=== PATIENT | female | born 2000 | race Caucasian/White ===

== ENCOUNTER 2023-11-12 21:13 | Emergency (ER) | payer MEDICAID, SELFPAY ==
[2023-11-12 21:20] VITALS: BP 156/100; PULSE 108; O2SAT 98
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
[2023-11-12 21:29] VITALS: BP 132/95; PULSE 89; RESP 18; TEMP 36.6; O2SAT 97; BMI 25.7
[2023-11-12] MEDS: Silver Sulfadiazine 1 % Cream 20 GM TUBE 1 APPL TOPICAL (22:28)
[2023-11-12] MEDS: oxyCODONE HCl Immed Release 5 MG TABLET 10 MG PO (22:28)
[2023-11-12 22:49] VITALS: BP 128/92; PULSE 94; RESP 16; TEMP 36.8; O2SAT 97
[2023-11-12 23:15] VITALS: BP 128/92; PULSE 94; RESP 16; TEMP 36.8; O2SAT 97
== END 2023-11-12 23:20 | disposition home or self-care (01) ==
PROVIDERS: Emergency Provider Internal Medicine
DX: T24.202A Burn of second degree of unspecified site of left lower limb, except ankle and foot, initial encounter (principal); T23.202A Burn of second degree of left hand, unspecified site, initial encounter; T23.211A Burn of second degree of right thumb (nail), initial encounter; T31.0 Burns involving less than 10% of body surface; X10.2XXA Contact with fats and cooking oils, initial encounter; Y93.9 Activity, unspecified; Y92.9 Unspecified place or not applicable; Y99.9 Unspecified external cause status
CPT/HCPCS: 99283

== ENCOUNTER 2023-12-12 08:04 | Outpatient (RCR) | payer MEDICAID, SELFPAY | END 2024-01-15 15:57 | disposition home or self-care (01) | LOC: HO.WCC 08:04 | PROVIDERS: Visit Provider Surgery | DX: T25.222D Burn of second degree of left foot, subsequent encounter (principal) | CPT/HCPCS: 99212 ==

== ENCOUNTER 2023-12-24 14:43 | Outpatient (REF) | payer MEDICAID, SELFPAY | END 2023-12-24 14:44 | disposition home or self-care (01) | LOC: HO.CHCLNP 14:43 | PROVIDERS: Visit Provider Family Medicine | DX: Z12.4 Encounter for screening for malignant neoplasm of cervix (principal) | CPT/HCPCS: 88142 ==

== ENCOUNTER 2024-04-10 17:25 | Emergency (ER) | payer MEDICAID, SELFPAY ==
--- NOTE | 2024-04-10 | ECG_ITS ---
Test Reason : chest pain Blood Pressure : / mmHG Vent. Rate : 090 BPM Atrial Rate : 090 BPM P-R Int : 158 ms QRS Dur : 072 ms QT Int : 326 ms P-R-T Axes : 050 036 012 degrees QTc Int : 398 ms Normal sinus rhythm with sinus arrhythmia Normal ECG No previous ECGs available Referred By: Generic ED Physician Electronically Signed By:MIRTHA DURAN
--- NOTE | ~2024-04-10 | XR_ITS ---
EXAMINATION: XR CHEST CLINICAL INFORMATION: Central chest pain. COMPARISON: None available. TECHNIQUE: 2 views of the chest were obtained. FINDINGS: The heart is normal in size. There is no consolidation within either lung. No pleural effusion. No pneumothorax. No acute osseous abnormality. XR/XR chest 2V IMPRESSION: No acute cardiopulmonary disease. Electronically signed by: Vinay Higginbotham DO 04/10/2024 07:45 PM EDT RP
[2024-04-10 17:38] VITALS: BP 127/79; PULSE 91; RESP 20; TEMP 36.1; O2SAT 94; BMI 24.1
--- NOTE | 2024-04-10 17:39 | ED.CHESTPAIN ---
HPI - Chest Pain General Chief Complaint: Chest Pain Stated Complaint: chest pain Related Data Previous Rx's ?Medication ?Instructions ?Recorded ibuprofen 600 mg tablet 600 mg PO Q6H PRN fever or pain 11/12/23 #30 tabs silver sulfadiazine 1 % topical 1 appl topical DAILY #85 grams 11/12/23 cream (SSD) Allergies Allergy/AdvReac Type Severity Reaction Status Date / Time sherrie Allergy Anaphylaxis Verified 04/10/24 17:41 [facility] Social History Social History Advance Directives: No Advance Directives Information Provided: No Do you have a plan to hurt others: No Plan Physical Exam Vital Signs: Vital Signs: Last Vital Signs Temp 96.8 F 04/10/24 20:53 Pulse 87 04/10/24 20:53 Resp 20 04/10/24 20:53 BP 120/70 04/10/24 20:53 Pulse Ox 100 04/10/24 20:53 O2 Del Method Room Air 04/10/24 20:53 BMI result Body Mass Index 24.1 Course Course Course Narrative: This is a Rapid Medical Examination (RME) performed by Juwan Avery PA-C in triage. Full HPI, ROS, assessment and treatment plan per primary provider in the Main ED. 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 pain worse w/ deep breathing. reports it feels like someone is sitting on her chest. reports hx of similar with anxiety attack 3 yrs ago. 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 no OCP. no calf pain. + well appearing. Plan: labs, ekg, cxr Reevaluation(s) Reevaluation #1: Patient left the emergency department before myself or any of the other clinicians could review or explain physical exam findings, test results, need or lack there of for additional testing, treatment options, or a treatment plan. Medical Decision Making Lab Data 04/10/24 18:08 04/10/24 18:08 Labs: Lab Results 04/10/24 Range/Units 18:08 WBC 7.9 (4.8-10.8) X10*3/uL RBC 4.51 (4.20-5.50) X10*6/uL Hgb 13.9 (12.0-16.0) g/dl Hct 39.5 (37.0-47.0) % MCV 87.6 (80.0-98.0) fL MCH 30.8 (27.0-33.0) pg MCHC 35.2 H (31.0-35.0) g/dl RDW 11.8 (11.0-16.0) % Plt Count 300 (160-400) X10*3/uL MPV 9.0 L (9.4-12.3) fL Immature Gran % (Auto) 0.3 (0.0-0.4) % Neut % (Auto) 60.1 (45-73) % Lymph % (Auto) 30.8 (20-40) % [place] % (Auto) 5.3 (2-11) % Eos % (Auto) 2.9 (0-4) % Baso % (Auto) 0.6 (0-2) % Lymph # (Auto) 2.4 (1.2-4.9) X10*3/uL [place] # (Auto) 0.4 (0.1-1.2) X10*3/uL Eos # (Auto) 0.2 (0.0-0.4) X10*3/uL Baso # (Auto) 0.1 (0.0-0.2) X10*3/uL Abs Immat Gran (auto) 0.02 (0.00-0.03) X10*3/uL Absolute Neuts (auto) 4.7 (2.0-8.3) x10*3/uL Absolute Nucleated RBC 0.000 (0.0-0.012) X10*3/uL Nucleated RBC % (auto) 0.0 (0.0-0.2) /100WBC PT 12.5 (11.1-13.3) SEC INR 1.0 (0.9-1.1) Sodium 141 (135-145) mmol/L Potassium 4.0 (3.3-5.1) mmol/L Chloride 110 H (96-108) mmol/L Carbon Dioxide 24 (22-29) mmol/L Anion Gap 11 L (12-20) BUN 13 (9-16) mg/dL Creatinine 0.88 (0.5-1.4) mg/dL Estim Creat Clear Calc 88.7 Estimated GFR > 60 Random Glucose 131 H (60-115) mg/dL Calcium 9.4 (8.4-10.2) mg/dL Magnesium 2.4 (1.6-2.6) mg/dL Total Bilirubin 0.5 (0.0-1.0) mg/dL AST 18 (5-31) U/L ALT 22 (0-31) U/L Alkaline Phosphatase 75 (39-117) U/L Troponin I High Sens < 2.7 (<3.5-17.0) ng/L Total Protein 7.2 (6.5-8.0) g/dL Albumin 4.3 (3.5-5.0) g/dL Lipase 25 (8-78) U/L Discharge Plan Discharge Clinical Impression: Chest pain Patient Disposition: Left W/O Completing Treatment Prescriptions: No Action silver sulfadiazine [SSD] 1 % cream 1 appl topical DAILY Qty: 85 1RF Rx Instructions: apply a 1.5 mm thickness ibuprofen 600 mg tablet 600 mg PO Q6H PRN (Reason: fever or pain) Qty: 30 0RF Discharge Date/Time: 04/10/24 20:56
[2024-04-10 18:22] LABS: MANUAL DIFF FLAG NO
[2024-04-10 18:24] LABS: Basophils Absolute Auto 0.1 X10*3/uL (0.0-0.2); Basophils Percent Auto 0.6 % (0-2); Eosinophils Absolute Auto 0.2 X10*3/uL (0.0-0.4); Eosinophils Percent Auto 2.9 % (0-4); Hematocrit 39.5 % (37.0-47.0); Hemoglobin 13.9 g/dl (12.0-16.0); Imm Gran Abs Auto 0.02 X10*3/uL (0.00-0.03); Imm Gran Pct Auto 0.3 % (0.0-0.4); Lymphocytes Absolute Auto 2.4 X10*3/uL (1.2-4.9); Lymphocytes Percent Auto 30.8 % (20-40); Mean Corpuscular HGB Conc 35.2 g/dl (31.0-35.0); Mean Corpuscular Hemoglobin 30.8 pg (27.0-33.0); Mean Corpuscular Volume 87.6 fL (80.0-98.0); Monocytes Absolute Auto 0.4 X10*3/uL (0.1-1.2); Monocytes Percent Auto 5.3 % (2-11); Neutrophils Absolute Auto 4.7 x10*3/uL (2.0-8.3); Neutrophils Percent Auto 60.1 % (45-73); Platelet Count 300 X10*3/uL (160-400); Red Blood Count 4.51 X10*6/uL (4.20-5.50); Red Cell Distribution Width 11.8 % (11.0-16.0); White Blood Count 7.9 X10*3/uL (4.8-10.8)
[2024-04-10 18:29] LABS: Prothrombin Time 12.5 SEC (11.1-13.3)
[2024-04-10 18:40] LABS: Alanine Aminotransferase 22 U/L (0-31); Albumin Level 4.3 g/dL (3.5-5.0); Alkaline Phosphatase 75 U/L (39-117); Anion Gap 11 (12-20); Aspartate Amino Transferase 18 U/L (5-31); Bilirubin Total 0.5 mg/dL (0.0-1.0); Blood Urea Nitrogen 13 mg/dL (9-16); Calcium 9.4 mg/dL (8.4-10.2); Carbon Dioxide 24 mmol/L (22-29); Chloride 110 mmol/L (96-108); Creatinine Clr Calc Pharmacy 88.7; Estimated Glomerular Filt Rate > 60; Glucose Random 131 mg/dL (60-115); Lipase 25 U/L (8-78); Magnesium 2.4 mg/dL (1.6-2.6); Sodium 141 mmol/L (135-145); Total Protein 7.2 g/dL (6.5-8.0)
[2024-04-10 18:49] LABS: Troponin-I High Sensitivity < 2.7 ng/L (<3.5-17.0)
[2024-04-10 20:53] VITALS: BP 120/70; PULSE 87; RESP 20; TEMP 36; O2SAT 100
== END 2024-04-10 20:56 | disposition left against medical advice (07) ==
LOC: HO.ED 20:56
PROVIDERS: Physician Assistant Medical; Emergency Provider Emergency Medicine
DX: R07.9 Chest pain, unspecified (principal); F41.9 Anxiety disorder, unspecified; Z79.899 Other long term (current) drug therapy; Z53.21 Procedure and treatment not carried out due to patient leaving prior to being seen by health care provider
CPT/HCPCS: 36415; 71046; 80053; 83690; 83735; 84484; 85025; 85610; 93005; 99281; 99283

== ENCOUNTER 2024-06-13 16:59 | Emergency (ER) | payer OTHER, MEDICAID, SELFPAY ==
--- NOTE | ~2024-06-13 | XR_ITS ---
EXAMINATION: XR HAND/WRIST, RIGHT CLINICAL INFORMATION: Right hand pain. COMPARISON: None available. TECHNIQUE: PA, lateral, and oblique views of the right hand and wrist. FINDINGS: The bones and soft tissues appear unremarkable. No fracture identified. Alignment is anatomic. Joint spaces appear maintained. No erosions or soft tissue calcifications. XR/XR hand wrist RT IMPRESSION: Normal radiographs of the hand and wrist. Electronically signed by: Eloy Holt MD 06/13/2024 05:59 PM [facility]
--- NOTE | ~2024-06-13 | XR_ITS ---
EXAMINATION: XR ELBOW, RIGHT CLINICAL INFORMATION: Pain. COMPARISON: None available. TECHNIQUE: AP, lateral, and oblique views of the right elbow. FINDINGS: The bones and soft tissues appear unremarkable. No fracture or joint effusion identified. Alignment is anatomic. Joint spaces are maintained. XR/XR elbow RT min 3V IMPRESSION: Normal plain film examination of the right elbow. Electronically signed by: Eloy Holt MD 06/13/2024 05:57 PM EST
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
[2024-06-13 17:08] VITALS: BP 136/90; PULSE 106; RESP 16; TEMP 37.1; O2SAT 99; BMI 28.6
[2024-06-13 18:54] VITALS: BP 136/90; PULSE 106; RESP 16; TEMP 37.1; O2SAT 99
== END 2024-06-13 18:54 | disposition home or self-care (01) ==
LOC: HO.ED 18:49
PROVIDERS: Emergency Provider Internal Medicine
DX: S63.501A Unspecified sprain of right wrist, initial encounter (principal); W20.8XXA Other cause of strike by thrown, projected or falling object, initial encounter; Y93.89 Activity, other specified; Y92.218 Other school as the place of occurrence of the external cause; Y99.0 Civilian activity done for income or pay
CPT/HCPCS: 73080; 73110; 73130; 99282; 99283

== ENCOUNTER 2024-06-16 11:16 | Outpatient (REF) | payer OTHER, MEDICAID, SELFPAY ==
[2024-06-17 04:11] LABS: HBS Num1 7.22 mIU/mL (0-7.99); HBc Num1 0.11 S/CO (0.00-0.79); HBsAGNum1 0.44 S/CO (0.00-0.99); Hepatitis B Core Antibody Nonreactive (Nonreactive); Hepatitis B Surface Antigen Negative (Negative); ~Hepatitis B Surface Antibody NONREACTIVE (Nonreactive)
[2024-06-17 05:36] LABS: CT PCR NOT DETECTED (Not Detect.); NG PCR NOT DETECTED (Not Detect.)
== END 2024-06-16 11:17 | disposition home or self-care (01) ==
LOC: HO.HHCL 11:16
PROVIDERS: Visit Provider Advanced Practice Midwife
DX: Z20.2 Contact with and (suspected) exposure to infections with a predominantly sexual mode of transmission (principal)
CPT/HCPCS: 36415; 86704; 86706; 87340; 87491; 87591

== ENCOUNTER 2024-07-03 07:54 | Outpatient (REF) | payer OTHER, MEDICAID, SELFPAY | END 2024-07-03 07:55 | disposition home or self-care (01) | LOC: HO.HOSX 07:54 | DX: M79.643 Pain in unspecified hand (principal); M25.531 Pain in right wrist | CPT/HCPCS: 73110; 99202 ==

== ENCOUNTER 2024-07-03 08:47 | Outpatient (AMB) | payer OTHER, MEDICAID, SELFPAY ==
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
[2024-07-03 08:58] VITALS: BMI 25.7
== END 2024-07-03 09:34 | disposition home or self-care (01) ==
DX: M79.643 Pain in unspecified hand (principal)
CPT/HCPCS: 99203

== ENCOUNTER 2024-07-16 21:41 | Emergency (ER) | payer MEDICAID, SELFPAY ==
[2024-07-16 21:46] VITALS: BP 119/81; PULSE 80; RESP 18; TEMP 36.9; O2SAT 98; BMI 28.2
--- NOTE | 2024-07-16 22:10 | MHC.EDTECH ---
Patient brought into triage area,labs,and sars/flu/rsv obtained and sent to lab.
[2024-07-16 22:17] LABS: Basophils Percent Auto 0.5 % (0-2); Eosinophils Absolute Auto 0.1 X10*3/uL (0.0-0.4); Eosinophils Percent Auto 1.5 % (0-4); Hematocrit 38.4 % (37.0-47.0); Hemoglobin 13.8 g/dl (12.0-16.0); Imm Gran Abs Auto 0.01 X10*3/uL (0.00-0.03); Imm Gran Pct Auto 0.1 % (0.0-0.4); Lymphocytes Absolute Auto 2.3 X10*3/uL (1.2-4.9); Lymphocytes Percent Auto 29.2 % (20-40); MANUAL DIFF FLAG NO; Mean Corpuscular HGB Conc 35.9 g/dl (31.0-35.0); Mean Corpuscular Hemoglobin 30.8 pg (27.0-33.0); Mean Corpuscular Volume 85.7 fL (80.0-98.0); Monocytes Absolute Auto 0.5 X10*3/uL (0.1-1.2); Monocytes Percent Auto 5.8 % (2-11); Neutrophils Percent Auto 62.9 % (45-73); Platelet Count 281 X10*3/uL (160-400); Red Blood Count 4.48 X10*6/uL (4.20-5.50); Red Cell Distribution Width 11.3 % (11.0-16.0)
[2024-07-16] MEDS: diphenhydrAMINE HCL 50 MG/ML VIAL 25 MG IVPUSH (22:38)
[2024-07-16] MEDS: 0.9 % Sodium Chloride 1,000 ML 999 ML IV (22:38)
[2024-07-16] MEDS: Ketorolac Tromethamine 15 MG/ML VIAL IVPUSH (22:39)
[2024-07-16] MEDS: Metoclopramide HCl 10 MG/2 ML VIAL IVPUSH (22:39)
[2024-07-16 22:40] LABS: Alanine Aminotransferase 25 U/L (0-31); Albumin Level 4.2 g/dL (3.5-5.0); Alkaline Phosphatase 67 U/L (39-117); Anion Gap 11 (12-20); Aspartate Amino Transferase 19 U/L (5-31); Bilirubin Total 0.6 mg/dL (0.0-1.0); Blood Urea Nitrogen 8 mg/dL (9-16); Calcium 8.8 mg/dL (8.4-10.2); Carbon Dioxide 22 mmol/L (22-29); Chloride 112 mmol/L (96-108); Creatinine Clr Calc Pharmacy 84.8; Estimated Glomerular Filt Rate > 60; Glucose Random 106 mg/dL (60-115); HCG Quantitative < 2 mIU/mL; Potassium 3.3 mmol/L (3.3-5.1); Sodium 142 mmol/L (135-145); Total Protein 7.2 g/dL (6.5-8.0)
--- NOTE | 2024-07-16 22:47 | ED.HA ---
HPI - Headache General Chief Complaint: Headache Stated Complaint: Headache for 3 days Time Seen by Provider: 07/16/24 22:04 Source: patient and old records reviewed Mode of arrival: ambulatory Limitations: no limitations History of Present Illness ED Provider: OMAR RICK Narrative: 24 yo female with PMH of migraines on topamax - reports worsening R sided throbbing headache x 3 days with n/v photophobia. No recent illness or trauma, no thinners. She tried motrin earlier no relief. She took additional 50mg of topamax on accident over her normal dose today. She was worried. She states it started at rest - has not had any fevers. She notes the headache will not go away. MD elicited complaint: migraine Pertinent past history: migraines Onset (ago): day(s) (3) Onset description: gradually Location: right, frontal and temporal Severity: severe Quality & Timing: throbbing and progressively worsening Exacerbating factors: light and noise Relieving factors: rest Context: occurred at rest Associated symptoms: nausea, vomiting and photophobia Treatments prior to arrival: none Related Data Previous Rx's ?Medication ?Instructions ?Recorded ibuprofen 600 mg tablet 600 mg PO Q6H PRN pain #30 tabs 06/13/24 cyclobenzaprine 10 mg tablet 10 mg PO TID PRN muscle spasm #20 07/17/24 tabs ondansetron 4 mg disintegrating 4 mg PO Q8H PRN nausea and 07/17/24 tablet vomiting #20 tabs Allergies Allergy/AdvReac Type Severity Reaction Status Date / Time kiwi Allergy Anaphylaxis Verified 07/16/24 21:50 sumatriptan Allergy Anaphylaxis Verified 07/16/24 21:50 Review of Systems Review of Systems: Constitutional : No Fever, No Chills, No Fatigue ENT/Mouth : No sore throat, No Rhinorrhea Eyes: No Eye Pain, No Swelling, No Redness Cardiovascular : No Chest Pain, No SOB, No Dyspnea on Exertion Respiratory : No Cough, No Sputum Gastrointestinal : pos Nausea, pos Vomiting, No Diarrhea, No abdominal Pain Genitourinary : No Dysuria, No Urinary Frequency, No Hematuria, Musculoskeletal : No joint pain, No Myalgias, No Joint Swelling Skin : No Skin Lesions, No rash Neuro : No Weakness, No Numbness, No Dizziness, positive Headache Psych : No Anxiety/Panic, No Depression All other systems reviewed and are negative PMFSH Past Medical History Attestation statement: The following information was validated with the patient. 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 Oriented X3. No acute distress. Eyes: Pupils equal, round and reactive to light. photophobia ENT: Pharynx normal. photophobia Neck: Normal inspection. Neck supple. no meningeal signs CVS: Normal heart rate and rhythm. Pulses normal. Respiratory: No respiratory distress. Breath sounds normal. Abdomen: Soft and nontender. Skin: Skin warm and dry. Normal skin color. Normal skin turgor. Extremities: No lower extremity edema. No calf ttp Neuro: Oriented X 3. No motor deficit. No sensory deficit. Medications Administered Discontinued Medications Generic Name Dose Route Start Last Admin Trade Name Freq PRN Reason Stop Dose Admin Diphenhydramine HCl 25 mg 07/16/24 22:24 07/16/24 22:38 Diphenhydramine Hcl 50 Mg/Ml Vial IVPUSH 07/16/24 22:25 25 mg ONCE ONE Administration Sodium Chloride 1,000 mls @ 999 mls/hr 07/16/24 22:24 07/16/24 22:38 Ns IV 07/16/24 23:24 999 mls/hr .Q1H1M ONE Administration Ketorolac Tromethamine 15 mg 07/16/24 22:24 07/16/24 22:39 Ketorolac Tromethamine 15 Mg/Ml Vial IVPUSH 07/16/24 22:25 15 mg ONCE ONE Administration Metoclopramide HCl 10 mg 07/16/24 22:24 07/16/24 22:39 Metoclopramide Hcl 10 Mg/2 Ml Vial IVPUSH 07/16/24 22:25 10 mg ONCE ONE Administration Medical Decision Making Medical Decision Making [facility] Narrative: 24 yo female with PMH of migraines on topamax here with progressive headache with photophobia n/v not on thinners and no trauma - overall not toxic appearing but does appear uncomfortable no fevers. Given worsening headache and gradual onset doubt SAH, no fevers to suggest infection. She did take extra 50mg of topamax doubt overdose or ingestion. Started on IV migraine cocktail. Differential Diagnosis Differential Diagnoses: The differential diagnosis associated with the presentation includes migraine, viral syndrome, tension headache Admission/Observation Consideration of admission/observation: Escalation of care including admission/observation considered feels better stable for DC tolerating PO Lab Data [facility] Lab Attestation statement: I reviewed the patient's lab results. 07/16/24 22:10 07/16/24 22:10 Labs: Lab Results 07/16/24 Range/Units 22:10 WBC 8.0 (4.8-10.8) X10*3/uL RBC 4.48 (4.20-5.50) X10*6/uL Hgb 13.8 (12.0-16.0) g/dl Hct 38.4 (37.0-47.0) % MCV 85.7 (80.0-98.0) fL MCH 30.8 (27.0-33.0) pg MCHC 35.9 H (31.0-35.0) g/dl RDW 11.3 (11.0-16.0) % Plt Count 281 (160-400) X10*3/uL MPV 9.0 L (9.4-12.3) fL Immature Gran % (Auto) 0.1 (0.0-0.4) % Neut % (Auto) 62.9 (45-73) % Lymph % (Auto) 29.2 (20-40) % Schuyler % (Auto) 5.8 (2-11) % Eos % (Auto) 1.5 (0-4) % Baso % (Auto) 0.5 (0-2) % Lymph # (Auto) 2.3 (1.2-4.9) X10*3/uL Schuyler # (Auto) 0.5 (0.1-1.2) X10*3/uL Eos # (Auto) 0.1 (0.0-0.4) X10*3/uL Baso # (Auto) 0.0 (0.0-0.2) X10*3/uL Abs Immat Gran (auto) 0.01 (0.00-0.03) X10*3/uL Absolute Neuts (auto) 5.0 (2.0-8.3) x10*3/uL Absolute Nucleated RBC 0.000 (0.0-0.012) X10*3/uL Nucleated RBC % (auto) 0.0 (0.0-0.2) /100WBC Sodium 142 (135-145) mmol/L Potassium 3.3 (3.3-5.1) mmol/L Chloride 112 H (96-108) mmol/L Carbon Dioxide 22 (22-29) mmol/L Anion Gap 11 L (12-20) BUN 8 L (9-16) mg/dL Creatinine 1.01 (0.5-1.4) mg/dL Estim Creat Clear Calc 84.8 Estimated GFR > 60 Random Glucose 106 (60-115) mg/dL Calcium 8.8 D (8.4-10.2) mg/dL Total Bilirubin 0.6 (0.0-1.0) mg/dL AST 19 (5-31) U/L ALT 25 (0-31) U/L Alkaline Phosphatase 67 (39-117) U/L Total Protein 7.2 (6.5-8.0) g/dL Albumin 4.2 (3.5-5.0) g/dL Beta HCG, Quant < 2 mIU/mL Influenza Type A (PCR) NEGATIVE (Negative) Influenza Type B (PCR) NEGATIVE (Negative) RSV RNA Qual (PCR) NEGATIVE (Negative) SARS-CoV-2 RNA (RT-PCR) NEGATIVE (Negative) Independent Historian Clinical information obtained from an independent historian. History obtained from or confirmed by: Friend Tests considered The following testing was considered but not selected: CT head but hx of migraines gradual onset at rest and worsening over 3 days doubt ICH Prescription Management I considered prescription management with: Other Discharge Plan Discharge Clinical Impression: Migraine Qualifiers: Migraine type: unspecified Status migrainosus presence: without status migrainosus Intractability: not intractable Qualified Code(s): G43.909 - Migraine, unspecified, not intractable, without status migrainosus Patient Disposition: Home, Self-Care Instructions: Migraine Headache (ED) Additional Instructions: labs reassuring negative for flu, covid, rsv stay hydrated do not take the topiramate until tomorrow night return for any worsening symptoms or concerns. Prescriptions: New cyclobenzaprine 10 mg tablet 10 mg PO TID PRN (Reason: muscle spasm) Qty: 20 0RF ondansetron 4 mg tablet,disintegrating 4 mg PO Q8H PRN (Reason: nausea and vomiting) Qty: 20 0RF No Action ibuprofen 600 mg tablet 600 mg PO Q6H PRN (Reason: pain) Qty: 30 0RF Print Language: Hungarian
[2024-07-16 22:55] LABS: Influenza A PCR NEGATIVE (Negative); Influenza B PCR NEGATIVE (Negative); Resp Syncy Virus RNA Qual PCR NEGATIVE (Negative); SARS COV2 PCR INHOUSE NEGATIVE (Negative)
[2024-07-17 00:13] VITALS: BP 107/75; PULSE 74; RESP 18; TEMP 36.8; O2SAT 100
== END 2024-07-17 00:30 | disposition home or self-care (01) ==
PROVIDERS: Emergency Provider Emergency Medicine
DX: G43.909 Migraine, unspecified, not intractable, without status migrainosus (principal); Z03.818 Encounter for observation for suspected exposure to other biological agents ruled out; Z79.899 Other long term (current) drug therapy
CPT/HCPCS: 0241U; 36415; 80053; 84702; 85025; 96374; 96375; 99284; J1200; J1885; J2765

== ENCOUNTER 2024-07-17 07:59 | Outpatient (REF) | payer MEDICAID, SELFPAY | END 2024-07-17 08:00 | disposition home or self-care (01) | LOC: HO.HOSX 07:59 | DX: M79.641 Pain in right hand (principal); M79.643 Pain in unspecified hand | CPT/HCPCS: 73110; 99212 ==

== ENCOUNTER 2024-07-17 09:38 | Outpatient (AMB) | payer OTHER, MEDICAID, SELFPAY ==
--- NOTE | 2024-07-17 09:39 | A.OFFVIS_ITS ---
Vital Signs 07/17/24 09:40 Height 5 ft 4 in Weight 164 lb BMI 28.1 Intake Visit Reasons: OV right wrist sprain-WC DOI 06/05/24 Intake Note: Elisa is a 24 year old right hand dominant female who presents today for a follow up visit for a work related injury to her right wrist, DOI: 06/05/2024. At last visit patient was provided with a Velcro thumb spica splint only to be removed with bathing and to be worn at all other times. Patient reports that she continues to have pain at the base of the thumb and in the ring and pointer fingers of the right hand. She reports painful ROM , worse in the thumb which she also notes a crunching noise and sensation with this motion. Of note she was seen last night at [facility] [place] and concern of overdose of migraine medication (topamax). Allergies kiwi Allergy (Verified 07/16/24 21:50) Anaphylaxis sumatriptan Allergy (Verified 07/16/24 21:50) Anaphylaxis HPI HPI OV right wrist sprain-WC DOI 06/05/24: Details: Elisa is a 24 year old right hand dominant female who presents today for a follow up visit for a work related injury to her right wrist, DOI: 06/05/2024. At last visit patient was provided with a Velcro thumb spica splint only to be removed with bathing and to be worn at all other times. Patient reports that she continues to have pain at the base of the thumb and in the ring and pointer fingers of the right hand. She reports painful ROM , worse in the thumb which she also notes a crunching noise and sensation with this motion. 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 Neuro: Normal sensation of the tips of all digits of the right hand at this time Vascular: Cap refill brisk Pain: Patient reports significant tenderness to palpation diffusely throughout the right wrist, however this is worst over the scaphoid tubercle, in the anatomical snuffbox, and on the volar and central wrist Patient does report discomfort in the knuckles of the right hand with attempting to make a closed fist ROM: With encouragement, patient is able to make a closed fist and extend all digits of the right hand Skin: No lacerations or abrasions. General: No ecchymosis, erythema, or evidence of infection. Psych: Appears grossly normal Affect normal Attitude cooperative Results Reviewed Results Reviewed: X-rays obtained in the office today and independently reviewed by me, Wally Raza PA-C, demonstrate no fracture or acute bony abnormality of the right hand or wrist. Assessment & Plan Assessment & Plan (1) Tenderness of anatomical snuffbox: Code(s): M79.643 - Pain in unspecified hand Category: Medical Plan 1. Anatomical snuffbox and thenar eminence tenderness of right wrist Secondary to injury Date of injury 06/05/2024 At this time, patient is educated about what tenderness in this area could mean Due to the fact that the patient still has no radio evident x-rays but is still experiencing significant snuffbox tenderness and tenderness to the scaphoid tubercle, urgent MRI is ordered to assess if there is an occult fracture of the scaphoid of the right wrist Patient was provided with a Velcro thumb spica splint only to be removed with bathing, and to be worn at all other times Patient was educated that she should be continuing to abide by strict 1-2 lb weight restriction in the right hand, but states that her job has not been able to accommodate this well, and states she may need to go on FMLA Patient was amenable to this plan Patient will follow-up after MRI for results review and discussion of further treatment options if indicated, sooner with any acute concerns Orders: Orders XR wrist RT w scaphoid Today M79.641 - Pain in right hand MR wrist RT wo con Today M79.643 - Pain in unspecified hand Medications: Refilled ibuprofen 600 mg PO Q6H PRN 30 tabs 0RF pain Coding Level of Care Code Est Pt Level 3 (49748) Diagnoses Tenderness of anatomical snuffbox M79.643
[2024-07-17 09:40] VITALS: BMI 28.1
== END 2024-07-17 10:07 | disposition home or self-care (01) ==
DX: M79.643 Pain in unspecified hand (principal)
CPT/HCPCS: 99213

== ENCOUNTER 2024-07-27 19:12 | Outpatient (REF) | payer OTHER, MEDICAID, SELFPAY ==
--- NOTE | ~2024-07-27 | MR_ITS ---
CLINICAL HISTORY: M79.643 - Pain in unspecified hand MR right wrist without gadolinium Comparison: DX - XR WRIST RT W SCAPHOID - 07/17/24 09:40 EST Findings: No fracture, dislocation, or significant osteoarthritis. No significant joint effusion. The scapholunate and lunotriquetral ligaments are intact. The flexor and extensor tendons are intact. Mild soft tissue edema signal adjacent to the ulnar styloid process extending into the styloid insertion of the triangular fibrocartilage complex. The articular disc and volar and dorsal radioulnar ligaments are intact. The extensor carpi ulnaris tendon subsheath is intact. The median nerve is unremarkable in course, caliber, and signal intensity. No masses are present within Guyon's canal. IMPRESSION: Mild soft tissue edema adjacent to the ulnar styloid process and styloid insertion of the triangular fibrocartilage complex which may represent a mild contusion/sprain. The triangular fibrocartilage complex is otherwise intact. No evidence of fracture. This document has been electronically signed by: Omero Garcia DO on 07/28/2024 16:26:31
== END 2024-07-27 19:13 | disposition home or self-care (01) ==
LOC: HO.MRI 19:12
DX: M79.641 Pain in right hand (principal)
CPT/HCPCS: 73221

== ENCOUNTER → 2024-07-27 19:25 | Outpatient (BNV) | payer OTHER, MEDICAID, SELFPAY | PROVIDERS: Visit Provider Radiology Diagnostic Radiology | DX: S60.211A Contusion of right wrist, initial encounter (principal) | CPT/HCPCS: 73221 ==

== ENCOUNTER 2024-08-12 09:56 | Outpatient (AMB) | payer OTHER, MEDICAID, SELFPAY ==
--- NOTE | 2024-08-12 09:57 | MHC.OFFVIS ---
Intake Visit Reasons: OV - RT wrist MRI review, 06/05/24 Intake Note: Elisa is a 24 year old right hand dominant female who presents today for an MRI review of her right wrist s/p work related injury to her right wrist, DOI: 06/05/2024. MRI was done on 07/28/2024. Pt states she still has some pain especially when moving her arm certain ways she will get a stabbing pain in her palm up to her thumb and down her arm. Allergies kiwi Allergy (Verified 08/12/24 10:01) Anaphylaxis sumatriptan Allergy (Verified 08/12/24 10:01) Anaphylaxis HPI HPI OV - RT wrist MRI review, 06/05/24: Details: Patient is a 24-year-old female who presents for right wrist MRI review after a work injury, date of injury 06/05/2024. Patient reports that she does still experience pain in the right hand and wrist, but states that this has improved since previous evaluation. Patient inquires about potential work restrictions. Reports some occasional numbness and tingling in the right thumb. No other acute complaints or concerns at this time. 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 Neuro: Normal sensation of the tips of all digits of the right hand at this time Vascular: Cap refill brisk Pain: Patient reports improved tenderness to palpation diffusely throughout the right wrist, however this is worst over the scaphoid tubercle, in the anatomical snuffbox, and on the volar and central wrist Patient does report discomfort in the knuckles of the right hand with attempting to make a closed fist ROM: Patient is able to make a closed fist and extend all digits of the right hand Skin: No lacerations or abrasions. General: No ecchymosis, erythema, or evidence of infection. Psych: Appears grossly normal Affect normal Attitude cooperative Results Reviewed Results Reviewed: IMPRESSION: Mild soft tissue edema adjacent to the ulnar styloid process and styloid insertion of the triangular fibrocartilage complex which may represent a mild contusion/sprain. The triangular fibrocartilage complex is otherwise intact. No evidence of fracture. This document has been electronically signed by: Omero Garcia, DO Assessment & Plan Assessment & Plan (1) Contusion of right hand: Code(s): S60.221A - Contusion of right hand, initial encounter Category: Medical (2) Tenderness of anatomical snuffbox: Code(s): M79.643 - Pain in unspecified hand Category: Medical Plan 1. Bony contusion of right wrist with snuffbox tenderness Date of injury 06/05/2024 Patient is educated that her MRI did not show any fracture or acute bony abnormality of the right scaphoid or any other bone of the right wrist Patient is also educated that I did not see anything on wet read of the MRI Patient is educated that she likely has a bony contusion of her right scaphoid, and there is no acute surgical intervention indicated for this injury Patient was amenable to this plan Patient was referred to occupational therapy for range of motion and strengthening of the right hand in the setting of a bony contusion of the right wrist Patient is also educated she should continue wearing her Velcro thumb spica splint with daytime activities and for pain, but should remove it for range of motion while at rest and while relaxing Patient will follow-up in 5-6 weeks for reassessment, sooner with any acute concerns Orders: Orders OT Evaluation and Treatment Today M79.643 - Pain in unspecified hand, S60.221A - Contusion of right hand, initial encounter Coding Level of Care Code Est Pt Level 3 (25347) Diagnoses Contusion of right hand S60.221A Tenderness of anatomical snuffbox M79.643
== END 2024-08-12 10:33 | disposition home or self-care (01) ==
DX: S60.221A Contusion of right hand, initial encounter (principal); M79.643 Pain in unspecified hand
CPT/HCPCS: 99213

== ENCOUNTER → 2024-08-12 09:56 | Outpatient (BNVA) | payer OTHER, MEDICAID, SELFPAY | DX: S60.221A Contusion of right hand, initial encounter (principal) | CPT/HCPCS: 99212 ==

== ENCOUNTER 2024-09-09 13:06 | Outpatient (RCR) | payer OTHER, SELFPAY ==
--- NOTE | 2024-08-18 11:16 | MHC.OT.EP ---
[address] [phone] Occupational Therapy Plan of Care Patient Name: Elisa Ingram Date of Evaluation: 08/18/24 Diagnosis: SCAPHOID CONTUSION Pain Location: THENAR EMINENCE R THUMB CENTRAL VOLAR PALM AND DORSAL HAND R ULNAR SYLOID, ULNAR WRIST Pain Score: 4-9/10 Pain Scale Used: Numeric (0 - 10) Aggravating Factors: DAILY ACTIVITIES (PULLING, PUSHING) Alleviating Factors: IBUPROFEN, GUMMIES, INCONSISTENT HEAT/ICE Assessment: MS INGRAM EXPERIENCED A WORK RELATED INJURY 10 WEEKS AGO TO HER DOMINANT R HAND. MRI RESULTS SHOW MILD SOFT TISSUE EDEMA ADJACENT TO THE ULNAR STYLOID PROCESS AND TFCC. SHE IS CURRENTLY WEARING A PRE BROCK THUMB SPICA ORTHOSIS WITH ADLs/IADLs. HER PAIN IS REPORTED IN HER THENAR EMINENCE, CENTRAL VOLAR AND DORSAL HAND, AND ULNAR ASPECT OF HER WRIST. ONGOING SKILLED OT IS WARRANTED TO IMPROVE ROM, STRENGTH, COORDINATION, PAIN MANAGEMENT AND IMPROVE FUNCTION FOR ADLs/IADLs. A 75% LIMITATION IS REPORTED PER THE QUICK DASH ASSESSMENT. Frequency and Duration: The patient will be seen 3X/WEEK FOR 6 WEEKS Short Term Goals: IND HEP IND USE OF HEAT/ICE IND ADL CLOSURE BOARD R WRIST ROM >60/55 Mcc Goals: WEAN FROM ORTHOSIS QUICK DASH <40% R GROSS GRASP >40 POUNDS REPORT <3/10 PAIN WITH LIFTING >10 POUNDS FOR IADLs Treatment Plan: Therapeutic Exercise Therapeutic Activity Home Exercise Program Splinting Neuro Re-ed Patient Education Desensitization/Sensory Re-ed Edema Control ADL Training Ultrasound NMES Iontophoresis Paraffin Fluidotherapy MHP Cold Packs Joint Mobilization Soft Tissue Mobilization Kinesiotaping Other (see comments) Electronically Signed By: FE SANTIAGO OTR/L Please Sign and return to therapist. Thank you once again for your referral.
--- NOTE | 2024-09-09 13:51 | MHC.OT.DC ---
[address] [phone] F: [phone] Occupational Therapy Discharge Note Patient Name: Elisa Ingram Provider: Wally Raza Diagnosis: SCAPHOID CONTUSION Date of Evaluation: 08/18/24 Date of Discharge: 09/09/24 Treatments to Date: 9 Cancellations to Date: 0 No Shows to Date: 0 Discharge Status: Achieved Goals Improved Function Independent with HEP Discharge Summary: MS INGRAM HAS BEEN MOTIVATED AND PROGRESSED WELL WITH HER OT TREATMENT SESSIONS. SHE HAS MET HER GOALS, INCLUDING LIFTING TASKS. SHE REPORTS LOW PAIN IN HER THENAR EMINENCE REGION (09/07). Pt READY FOR A TRANSITION TO A HOME BASED PROGRAM. D/C OT SERVICES. Electronically Signed By: FE SANTIAGO OTR/L Reviewed/agree with student documentation: N/A Therapist: Please Sign and return to therapist, thank you for your referral.
== END 2024-09-09 13:50 | disposition home or self-care (01) ==
LOC: HO.OT 13:06
PROVIDERS: PCP Internal Medicine
DX: S60.221D Contusion of right hand, subsequent encounter (principal); M79.641 Pain in right hand
CPT/HCPCS: 97033; 97110; 97140; 97167

== ENCOUNTER 2024-09-18 14:14 | Outpatient (AMB) | payer OTHER, SELFPAY ==
--- NOTE | 2024-09-18 14:23 | MHC.OFFVIS ---
Intake Visit Reasons: OV-Right Wrist Injury 07/26/24 -ROM check Intake Note: Elisa is a 24 year old right hand dominant female who presents today for follow up of a work related injury to her right wrist, DOI: 06/05/2024. At her last visit she was referred to OT. Patient reports that she has made good progress working with occupational therapy. ROM has improved, she still has some very mild pain in the palm of the hand but explains that this is tolerable. Denies numbness and tingling. No concerns at this time Allergies kiwi Allergy (Verified 08/12/24 10:01) Anaphylaxis sumatriptan Allergy (Verified 08/12/24 10:01) Anaphylaxis HPI HPI OV-Right Wrist Injury 07/26/24 -ROM check: Details: Elisa is a 24 year old right hand dominant female who presents today for follow up of a work related injury to her right wrist, DOI: 06/05/2024. At her last visit she was referred to OT. Patient reports that she has made good progress working with occupational therapy. ROM has improved, she still has some very mild pain in the palm of the hand but explains that this is tolerable. Denies numbness and tingling. 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 Neuro: Normal sensation of the tips of all digits of the right hand at this time Vascular: Cap refill brisk Pain: Patient reports no tenderness to palpation throughout the right wrist Patient reports no discomfort with range of motion of the right hand ROM: Patient is able to make a closed fist and extend all digits of the right hand Skin: No lacerations or abrasions. General: No ecchymosis, erythema, or evidence of infection. Psych: Appears grossly normal Affect normal Attitude cooperative Assessment & Plan Assessment & Plan (1) Contusion of right hand: Code(s): S60.221A - Contusion of right hand, initial encounter Category: Medical (2) Tenderness of anatomical snuffbox: Code(s): M79.643 - Pain in unspecified hand Category: Medical Plan 1. Bony contusion of right wrist with snuffbox tenderness Date of injury 06/05/2024 Patient is educated that her MRI did not show any fracture or acute bony abnormality of the right scaphoid or any other bone of the right wrist Patient is also educated that I did not see anything on wet read of the MRI Patient was educated that due to her complete improvement in symptoms, there is no further treatment indicated at this time Patient is educated that she can return to work full duty with no active restrictions Patient will follow-up as needed with any acute concerns Coding Level of Care Code Est Pt Level 3 (27483) Diagnoses Contusion of right hand S60.221A Tenderness of anatomical snuffbox M79.643
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
--- OUTSIDE RECORDS SUMMARY | 2024-09-18 14:36 | XMS_ITS | Encounter Summary ---
Author Organization [employer] Address [address] [facility] 7 [place] [address] Care Team Providers Care Industrial Pharmacist Name Role Phone Jennie Quinones MD Primary Care Provider [phone]- [phone] Reason for Visit * Reason Onset Date Comments Med Refill 12/18/2023 Encounter Details Date Type Department Care Team ([facility] st Contact Info) Description 12/18/2023 Refill [facility] MED & PEDS [address] [place] [address] Jennie Quinones MD [address] [place] [address] Migraine syndrome Social History Tobacco Use Types Packs/Day Years Used Date Smoking Tobacco: Never Passive Smoke Exposure: Never Smokeless Tobacco: Never Depression Answer Date Recorded Patient Health Questionnaire-9 [...] Orientation Straight 05/25/2022 3: 50 PM EDT documented as of this encounter Plan of Treatment Not on file documented as of this encounter Visit Diagnoses Diagnosis Migraine syndrome Migraine with aura, without mention of intractable migraine without mention of status migrainosus documented in this encounter Additional Health Concerns Assessment Noted Time PHQ-9 Depression Total Score: 16 024 10:56 AM EDT documented as of this encounter Care Teams Industrial Pharmacist Relationship Specialty Start Date End Date Jennie Quinones MD [address] [place] [id number] PCP - General Internal Medicine 12/17/23 documented as of this encounter
== END 2024-09-18 14:32 | disposition home or self-care (01) ==
PROVIDERS: PCP Internal Medicine
DX: S60.221A Contusion of right hand, initial encounter (principal); Z04.2 Encounter for examination and observation following work accident
CPT/HCPCS: 99213

== ENCOUNTER → 2024-09-18 14:14 | Outpatient (BNVA) | payer OTHER, SELFPAY | PROVIDERS: PCP Internal Medicine | DX: S60.221D Contusion of right hand, subsequent encounter (principal); M79.641 Pain in right hand | CPT/HCPCS: 99212 ==

== ENCOUNTER 2024-10-02 15:55 | Outpatient (REF) | payer OTHER, SELFPAY ==
--- OUTSIDE RECORDS SUMMARY | 2024-10-02 17:19 | XMS_ITS | Encounter Summary ---
Author Organization [employer] Address [address] [facility] 7 [place] [address] Care Team Providers Care Magazine Publisher Name Role Phone Jennie Quinones MD Primary Care Provider [phone]- [phone] Reason for Visit * Reason Onset Date Comments Med Refill 12/18/2023 Encounter Details Date Type Department Care Team ([facility] st Contact Info) Description 12/18/2023 Refill [facility] MED & PEDS [address] [place] [address] Jennie Quinones MD [address] [place] [address] Migraine syndrome Social History Tobacco Use Types [...] documented as of this encounter Care Teams Magazine Publisher Relationship Specialty Start Date End Date Jennie Quinones MD [address] [place] [id number] PCP - General Internal Medicine 12/17/23 documented as of this encounter
--- OUTSIDE RECORDS SUMMARY | 2024-10-02 17:19 | XMS_ITS | Encounter Summary ---
Author Organization [employer] Address [address] [facility] 7t [place] [address] Care Team Providers Care Finisher Polisher Name Role Phone Jennie Quinones MD Primary Care Provider [phone] Reason for Visit * Reason Onset Date Comments Lab Orders 09/28/2024 Encounter Details Date Type Department Care Team (Late st Contact Info) Description 09/28/2024 Telephone [facility] MEDICINE [address] [place], [place] [phone] Cheyanne Garcia CNM [address] [place] [address] Lab Orders Social History Tobacco Use Types Packs/Day Years Used Date Smoking Tobacco: Never Passive Smoke Exposure: Never Smokeless Tobacco: Never Alcohol Use Standard Drinks/Week Comments Not Currently [...] PM EDT documented as of this encounter Miscellaneous Notes * Telephone Encounter - Mery Whitehead RN - 10/02/2024 12:29 PM EST Telephone call to pt. Pt reports last menstrual period 08/20/24-08/25/24, states has taken several positive tests as recently as this morning that show faint positive line. Pt asking for blood work to confirm. Advised of outstanding lab order for this, pt plans to go to [facility] lab this afternoon. Pt reports faint spotting x1 day a few days ago and barely anything today. Advised pt importance of going to ED immediately if develop bleeding or cramping. Pt verbalized understanding. In regards to OB referral, pt stated I don't know yet, I don't want to get too excited yet. Advised her okay to call back regarding this. Pt in agreement with plan, no further questions. * Telephone Encounter - Ashleigh Flores RN - 10/01/2024 10:59 AM EST TC placed to to pt and LVM to call back the office regarding HcG testing * Telephone Encounter - Ashleigh Flores RN - 09/30/2024 11:24 AM EST TC placed to pt X2 but again no answer and the mailbox is full and can't accept any new messages. Will postpone this message until 10/01 for another attempt * Telephone Encounter - Mery Whitehead RN - 09/29/2024 2:10 PM EST Sent pt another Nettlet message notifying her that lab order sent and to status check. Called pt, no answer, cannot leave message because mail box full. * Telephone Encounter - Mery Whitehead RN - 09/28/2024 1:45 PM EST Telephone call x2 to pt, no answer, mailbox full. Pt messaged back on Moovweb before message sent earlier, has not yet read Moovweb message yet. Will task to call again. * Telephone Encounter - Cheyanne Garcia CNM - 09/28/2024 11:58 AM EST I can order hcg - she was hoping to get soon when I saw her, but please confirm if she would like to continue . I had referred her to genetics since her mom was CF carrier. If that didn't happen, can be done with OB. * Telephone Encounter - Mery Whitehead RN - 09/28/2024 11:39 AM EST Telephone call to pt regarding MyChart message. No answer, left voicemail to call back [facility]. Messaged pt back on MyChart. Will route message to Criselda Garcia, who pt saw in 05/2024. -- MyChart Hi I had totally forgotten to let you know when I started my period but I had started in 08/19/24 to 08/25/24. I was supposed to start my period now 4 days I???ve taken test and I have beencoming up with a super faint line but my mom had told me to get a blood test done. If that is possible would we be able to schedule an appointment to get one done? Or should I wait a little longer? documented in this encounter Plan of Treatment Not on file documented as of this encounter Visit Diagnoses Not on filedocumented in this encounter Additional Health Concerns Assessment Noted Time PHQ-9 Depression Total Score: 16 024 10:56 AM EDT documented as of this encounter Care Teams Finisher Polisher Relationship Specialty Start Date End Date Jennie Quinones MD [address] [place] [phone] PCP - General Internal Medicine 12/17/23 documented as of this encounter
--- OUTSIDE RECORDS SUMMARY | 2024-10-02 17:19 | XMS_ITS | Encounter Summary ---
Author Organization [employer] Address 75 [facility] 7t [place] [address] Care Team Providers Care Monument Letterer Name Role Phone Jennie Quinones MD Primary Care Provider [phone] Reason for Visit * Reason Onset Date Comments Lab Orders 09/29/2024 Encounter Details Date Type Department Care Team (Late st Contact Info) Description 09/29/2024 Telephone [facility] MEDICINE [address] [place], [place] [phone] Cheyanne Garcia CNM [address] [place] [address] Lab Orders Social History Tobacco Use Types [...] Encounter - Mery Whitehead RN - 09/29/2024 2:14 PM EST Please see separate encounter dated 09/28/24. Pt called 2x and Vixarhart message sent. Left 1 voicemail, unable to leave 2nd voicemail as box is full. Called pt again today, no answer, voicemail box full. Sent another MyChart message. Labwork ordered on 09/28/24 by nurse disease education specialist. * Telephone Encounter - Baljinder Waite - 09/29/2024 8:40 AM EST TC from pt reports last menstrual cycle was in July and had missed August . Pt took home test this morning and results were unclear. Pt states second line was faded pt would like bloodwork confirming . documented in this encounter Plan of Treatment Not on file documented as of this encounter Visit Diagnoses Not on filedocumented in this encounter Additional Health Concerns Assessment Noted Time PHQ-9 Depression Total Score: 16 024 10:56 AM EDT documented as of this encounter Care Teams Monument Letterer Relationship Specialty Start Date End Date Jennie Quinones MD [address] [place] [phone] PCP - General Internal Medicine 12/17/23 documented as of this encounter
--- OUTSIDE RECORDS SUMMARY | 2024-10-02 17:19 | XMS_ITS | Encounter Summary ---
Author Organization [employer] Address [address] [facility] 7t [place] [address] Care Team Providers Care Calender Machine Operator Name Role Phone Jennie Quinones MD Primary Care Provider [phone] [phone] Encounter Details Date Type Department Care Team (Late st Contact Info) Description 09/28/2024 Orders Only [facility] MEDICINE [address] [place] [address] Cheyanne Garcia CN [address] [place], [place] [phone] Missed period (Primary Dx) Social History Tobacco Use Types Packs/Day Years [...] as of this encounter Plan of Treatment Scheduled Orders Name Type Priority Associated Diagnoses Orde r Schedule hCG, Total, Quantitative Lab Routine Missed period Expected: 09/28/2024 (Approximate), Expires: 09/28/2025 documented as of this encounter Visit Diagnoses Diagnosis Missed period- Primary documented in this encounter Additional Health Concerns Assessment Noted Time PHQ-9 Depression Total Score: 16 024 10:56 AM EDT documented as of this encounter Care Teams Calender Machine Operator Relationship Specialty Start Date End Date Jennie Quinones MD [address] [place] [address] PCP - General Internal Medicine 12/17/23 documented as of this encounter
--- OUTSIDE RECORDS SUMMARY | 2024-10-02 17:19 | XMS_ITS | Clinical Summary ---
Author Organization [employer] Address [address] [facility] [address] [place] [address] Care Team Providers Care Linux Admin Name Role Phone Jennie Quinones MD Primary Care Provider [phone] Allergies Active Allergy Reactions Criticality Noted Date Comments Hlb-Jkks-Mepq Buffered Unknown 11/21/2022 Kiwi Extract Swelling High 12/17/2023 Swelling of the tongue Sumatriptan High 03/03/2021 Other reaction(s): Other (See Comments) [place] like tongue swelled but it did not [...] Encounters Date Type Department Care Team Description 09/29/2024 Telephone [facility] [address] [place] [address] Cheyanne Garcia CNM Lab Orders 09/28/2024 Orders Only [facility] [address] [place] [address] Cheyanne Garcia CNM Missed period (Primary Dx) 09/28/2024 Telephone [facility] [address] [place] [address] Cheyanne Garcia CNM Lab Orders 08/06/2024 3:30 PM EST Office Visit [facility] [address] [place] [address] Jennie Quinones MD Acute cough (Primary Dx) 08/06/2024 Travel 08/06/2024 Telephone [facility] [address] [place] [address] Jennie Quinones MD Nurse Triage from Last 3 Months Immunizations Name Administration [...] 12 Moderna Covid-19 Vaccine 12+ 10/31/2020 Novel [id number], all formulations 07/02/2009,06/04/2009 Pneumococcal Conjugate PCV 7 04/14/2001,10/09/19 01,2000 Tdap 05/16/2021,01/24/2012 Varicella 12/19/2007,04/14/2001 Family History Medical [...] exists Hepatitis A Vaccines Completed 06/21/2015, 03/24/20 HPV Vaccines Completed 07/09/2016, 05/30, 03/24/2013 Meningococcal [...] Influenza A OSOM (08/06/2024 4:27 PM EST) Rapid Influenza A Ag Negative Negative, Indeterminate QC Media Lot # [id number] Comment:controls passed Lot# Expiration Date Swab Nasopharyngeal structure / Unknown 08/06/2024 4:27 PM EST Jennie Quinones MD POINT OF CARE TEST ENTER/ED IT ORDERABLES Final Result * POCT Rapid Influenza B OSOM (08/06/2024 4:26 PM EST) Rapid Influenza B Ag Negative Negative, Indeterminate QC Media Lot # [id number] Lot# Expiration Date , Comment:controls passed Swab 08/06/2024 4:26 PM EST us Jennie Quinones MD POINT OF CARE TEST ENTER/ED IT ORDERABLES Final Result * POCT Rapid Strep A OSOM (08/06/2024 4:25 PM EST) [facility] Rapid Strep A Screen Negative Negative, None Detected QC Media Lot # [id number] Lot# Expiration Date [id number] Comment:controls passed Swab 08/06/2024 4:25 PM EST us Jennie Quinones MD POINT OF CARE TEST ENTER/ED IT ORDERABLES Final Result * POCT Rapid Covid-19 BinaxNOW (08/06/2024 4:24 PM EST) [facility] Rapid COVID Ag Negative QC Media Lot # [id number] Lot# Expiration Date [id number] Swab 08/06/2024 4:24 PM EST us Jennie Quinones MD POINT OF CARE TEST ENTER/ED IT ORDERABLES Final Result * Pap Smear (12/24/2023 12:00 AM EDT) Swab Cervical swab / Unknown 12/24/2023 12/25/2023 10:30 AM EDT Narrative [facility] - 01/13/2024 5:10 PM EDT ----- ------- Name: Elisa Schultz ?Age/Sex: 23/F ? : 2000 Unit#: [id number] ?? Attend Dr: Vida Valencia MD ?Re12/24/23 ?Status: DEP REF ? Location: [facility]CLNP ? Disch: ? ----- ------- SPEC : [id number] ?RECD: 12/25/23-1030 ? STATUS: ??SOUT ? REQ NUM: [id number] ? JAMEY: 12/24/23-0000 ? SUBM DR: Vida Valencia MD ? ENTERED: ??12/25/23-1406 ?SP TYPE: Pap Smr ?OTHR DR: ? [...] Valencia MD LAB CYTOLOGY ORDERABLES Final Result [facility] [address] [place] [phone] * Hepatitis C Antibody with Reflex to HCV, RNA, Quantitative, Real-Time PCR (05/16/2021) HCV AB Nonreactive Blood Venous blood specimen / Unknown 05/16/2021 us Historical Provider LAB BLOOD ORDERABLES Jenniffer l Result from Last 3 Months or Most Recently Relevant to Health Maintenance Insurance [employer] [address] [place] [id number] Care Teams Linux Admin Relationship Specialty Start Date End Date Jennie Quinones MD [address] [place] [id number] PCP - General Internal Medicine 12/17/23
[2024-10-02 18:05] LABS: HCG Quantitative < 2 mIU/mL
== END 2024-10-02 15:56 | disposition home or self-care (01) ==
LOC: HO.HHCL 15:55
PROVIDERS: Visit Provider Advanced Practice Midwife
DX: N92.6 Irregular menstruation, unspecified (principal)
CPT/HCPCS: 36415; 84702

== ENCOUNTER 2024-11-25 23:14 | Emergency (ER) | payer SELFPAY ==
--- NOTE | ~2024-11-25 | CT_ITS ---
CLINICAL HISTORY: neck pain CT cervical spine without contrast Comparison: None Findings: Normal vertebral body alignment. No arthritic changes or stenoses. No acute fractures or dislocations. No acute findings on limited view of the intracranial contents. No cervical fluid collections or masses. Lung apices are clear. IMPRESSION: No acute findings. This document has been electronically signed by: Jamal Overton MD on 11/26/2024 00:36:16
--- NOTE | ~2024-11-25 | CT_ITS ---
CLINICAL HISTORY: head pain CT head without contrast Comparison: None Findings: No intra-axial mass, midline shift, hydrocephalus, or acute hemorrhage. No significant atrophy-like change or white matter disease. Mild mucosal thickening right maxillary sinus. Mastoids clear. The orbits are within normal limits. There is no acute fracture. IMPRESSION: 1. No acute intracranial findings. This document has been electronically signed by: Jamal Overton MD on 11/26/2024 00:30:05
[2024-11-25 23:21] VITALS: BP 132/95; PULSE 87; RESP 17; TEMP 36.6; O2SAT 98; BMI 24.9
--- OUTSIDE RECORDS SUMMARY | 2024-11-26 00:49 | XMS_ITS | Encounter Summary ---
Author Organization [employer] Address [address] [facility] 7 [place] [address] Care Team Providers Care Tree Trimmer Helper Name Role Phone Jennie Quinones MD Primary Care Provider [phone] Reason for Visit * Reason Onset Date Comments Med Refill 12/18/2023 Encounter Details Date Type Department Care Team ([facility] st Contact Info) Description 12/18/2023 Refill [facility] [address] [place] [address] Jennie Quinones MD [address] [place] [address] Migraine syndrome Social History Tobacco Use Types [...] documented as of this encounter Care Teams Tree Trimmer Helper Relationship Specialty Start Date End Date Jennie Quinones MD [address] [place] [id number] PCP - General Internal Medicine 12/17/23 documented as of this encounter
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
[2024-11-26 01:44] VITALS: BP 119/80; PULSE 59; RESP 16; TEMP 36.8; O2SAT 97
[2024-11-26 01:46] VITALS: BP 119/80; PULSE 59; RESP 16; TEMP 36.8; O2SAT 97
== END 2024-11-26 01:47 | disposition home or self-care (01) ==
PROVIDERS: Emergency Provider Emergency Medicine; PCP Nurse Practitioner
DX: S06.0X0A Concussion without loss of consciousness, initial encounter (principal); M79.10 Myalgia, unspecified site; R51.9 Headache, unspecified; M54.2 Cervicalgia; V47.5XXA Car driver injured in collision with fixed or stationary object in traffic accident, initial encounter; Y93.9 Activity, unspecified; Y92.410 Unspecified street and highway as the place of occurrence of the external cause; Y99.8 Other external cause status
CPT/HCPCS: 70450; 72125; 99283; 99284

== ENCOUNTER → 2024-11-25 23:20 | Outpatient (BNV) | payer SELFPAY | PROVIDERS: PCP Nurse Practitioner; Visit Provider Radiology Diagnostic Radiology | DX: M54.2 Cervicalgia (principal) | CPT/HCPCS: 70450; 72125 ==

== ENCOUNTER 2025-02-16 15:11 | Emergency (ER) | payer OTHER, SELFPAY ==
--- NOTE | ~2025-02-16 | US_ITS ---
EXAMINATION: US OBSTETRICAL ULTRASOUND CLINICAL INFORMATION: Blunt trauma, left side of the abdomen, possibly beta-hCG COMPARISON: None available. LMP: 11/20/2024. Gestational age by maternal dates is 12 weeks 4 days. Estimated date of delivery by maternal dates is 08/27/2025. TECHNIQUE: Grayscale and color Doppler imaging was performed through the pelvis FINDINGS: There is a single intrauterine gestational sac with visible yolk sac, embryo/fetus, and cardiac activity. There is no significant subchorionic hemorrhage or hematoma. HR: 161 beats per minute. Yolk sac is visible. CRL (crown rump length): 2.0 cm STEVEN (estimated date of delivery): 09/23/2025 MATERNAL ADNEXA: The right maternal ovary measures 1.9 x 1.3 x 1.6 cm. The left maternal ovary was not demonstrated. There is no significant maternal adnexal mass. No maternal pelvic ascites. US/US OB <= 14 weeks fetus IMPRESSION: Single living intrauterine . Size and dates are not concordant. Estimated date of delivery is 09/23/2025 by ultrasound Electronically signed by: Mario Gonsalves MD 02/16/2025 05:14 PM EDT
--- NOTE | ~2025-02-16 | US_ITS ---
EXAMINATION: US ABDOMEN LIMITED CLINICAL INFORMATION: Blunt trauma, left abdomen. COMPARISON: None available. TECHNIQUE: Real-time imaging of the right upper quadrant abdominal viscera. FINDINGS: SPLEEN: Visualized portions are unremarkable. It appears homogeneous and normal in size measuring 9 cm long axis. LEFT KIDNEY: No hydronephrosis. No renal calculi or focal parenchymal lesions. The kidney measures 11 cm in maximum dimension. FREE FLUID: None. US/US abdomen limited IMPRESSION: No free fluid or gross abnormality. Electronically signed by: Mario Gonsalves MD 02/16/2025 05:10 PM EDT
[2025-02-16 15:13] VITALS: BP 122/81; PULSE 106; RESP 16; TEMP 36.7; O2SAT 100; BMI 28.2
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
[2025-02-16 15:33] LABS: MANUAL DIFF FLAG NO
[2025-02-16 15:34] LABS: Hematocrit 34.0 % (37.0-47.0); Hemoglobin 12.4 g/dl (12.0-16.0); Imm Gran Abs Auto 0.05 X10*3/uL (0.00-0.03); Imm Gran Pct Auto 0.4 % (0.0-0.4); Lymphocytes Absolute Auto 1.8 X10*3/uL (1.2-4.9); Mean Corpuscular HGB Conc 36.5 g/dl (31.0-35.0); Mean Corpuscular Hemoglobin 30.9 pg (27.0-33.0); Mean Corpuscular Volume 84.8 fL (80.0-98.0); NRBC Abs Auto 0.000 X10*3/uL (0.0-0.012); NRBC Pct Auto 0.0 /100WBC (0.0-0.2); Platelet Count 262 X10*3/uL (160-400); Red Blood Count 4.01 X10*6/uL (4.20-5.50); White Blood Count 12.5 X10*3/uL (4.8-10.8)
[2025-02-16 15:55] LABS: Alanine Aminotransferase 27 U/L (0-31); Albumin Level 4.1 g/dL (3.5-5.0); Alkaline Phosphatase 72 U/L (39-117); Anion Gap 10 (12-20); Aspartate Amino Transferase 20 U/L (5-31); Blood Urea Nitrogen 8 mg/dL (9-16); Calcium 9.0 mg/dL (8.4-10.2); Carbon Dioxide 23 mmol/L (22-29); Chloride 109 mmol/L (96-108); Creatinine Clr Calc Pharmacy 124.4; Estimated Glomerular Filt Rate > 60; Potassium 3.8 mmol/L (3.3-5.1); Sodium 138 mmol/L (135-145); Total Protein 6.7 g/dL (6.5-8.0)
--- OUTSIDE RECORDS SUMMARY | 2025-02-16 16:45 | XMS_ITS | Clinical Summary ---
Author Organization [facility] Address [address] [place] [address] Care Team Providers Care Wardrobe Coordinator Name Role Phone Jennie Quinones MD Primary Care Provider Allergies Active Allergy Reactions Criticality Noted Date Comments Cam-Jeze-Unjc Buffered Unknown 11/21/2022 Kiwi Extract Swelling High 12/17/2023 Swelling of the tongue Sumatriptan High 03/03/2021 Other reaction(s): Other (See Comments) [place] like tongue swelled but it did not Medications rizatriptan (Maxalt) 10 MG tabletIndicatio ns:Migraine syndrome Take 1 tablet (10 mg) by mouth 1 (one) time if needed for migraine. May repeat in 2 hours if unresolved. Do not exceed 30 mg in 24 hours. 9 tablet 2 4 Active ibuprofen 600 MG tabletIndicatio ns:Right hip pain TAKE 1 TABLET BY MOUTH EVERY 8 HOURS IF NEEDED FOR MODERATE PAIN 30 tablet 3 4 Active Vit-Fe Fumarate-FA ( Plus) 27-1 MG tablet One tablet by mouth daily 30 tablet 11 4 Active azithromycin (Zithromax) 250 MG tabletIndicatio ns:Acute cough 500 mg :day 1. Day 2 through 5 : 250 mg 6 tablet 5 01/28/20 25 Discontinu ed(Therapy completed) Hospital, Clinic, or Other Facility Administered Medication Ordered Dose Route Frequency Start Date End Date Status medroxyPROGESTERone (Depo-Provera) injection 150 mgIndications:Encou nter for initial prescription of injectable contraceptive 150 mg IM Every 3 months 12/24/2023 5 Discontinued Active Problems Problem Noted Date Diagnosed Date [...] pain of over 3 months duration 07/07/2015 Estimated Date of Delivery Comme nts Yes 09/21/2025 Encounters Date Type Department Care Team Description 01/27/2025 9:15 AM EDT Office Visit [facility] [address] [place] [id number] Cheyanne Garcia CNM Less than 8 weeks gestation of (Primary Dx) 01/27/2025 Travel 01/26/2025 Telephone [facility] [place] [phone] Jennie Quinones MD Health Insurance 01/26/2025 Telephone [facility] [address] [place] [address] Cheyanne Garcia CNM CHART PREP 01/22/2025 Telephone [facility] [address] [place] [phone] Jennie Quinones MD Nurse Triage from Last 3 Months Immunizations Immunization Administration Dates Next Due DTaP 05/04/2004, 2,2000,08/19,2000 [...] 12 Moderna Covid-19 Vaccine 12+ 10/31/2020 Novel [id number], all formulations 07/02/2009,06/04/2009 Pneumococcal Conjugate PCV 7 [...] Recorded Patient Health Questionnaire-2 Score 3 12/17/2023 Estimated Date of Delivery Comme nts Yes 09/21/2025 Intention Date Recorded Wants to become (finding) 01/27 Sex and Gender Information Value Date Recorded Sex Assigned at Female 11/27/2022 5:03 PM EDT Legal Sex Female 3:50 PM EDT Gender Identity Female 05/25/2022 3:50 PM EDT Sexual Orientation Straight 05/25/2022 3: 50 PM EDT Last Filed Vital Signs Vital Sign Reading Time Taken Comments Blood Pressure 120/80 01/27/2025 9:25 AM EDT Pulse 108 01/27/2025 9:25 AM EDT Temperature 36.3 C (97.4 F) 01/27/2025 9:25 AM EDT Respiratory Rate 20 01/27/2025 9:25 AM EDT Oxygen Saturation 99% 01/27/2025 9:25 AM EDT Inhaled Oxygen Concentration - - Weight 76.4 kg (168 lb 6.4 oz) 01/27/2025 9:25 A M EDT Height 162.6 cm (5' 4 ) 01/27/2025 9:25 AM EDT Body Mass Index 28.91 01/27/2025 9:25 AM EDT Plan of Treatment Health Maintenance Due Date Last Done Comments Disability Screening 2000 Alcohol/Substance Use Screening 2012 COVID-19 Vaccine ( season) 2024 08/22/2021, 12/23/2020, 11/25/2020, Additional history exists Depression Monitoring 06/18/2024 12/17/2023, 024 SDOH Screening 12/16/2024 12/17/2023 Influenza Vaccine (#1) 2025 , 04/05/2020, 04/29/2019, Additional history exists RSV Patients and Patients Aged 60 years or older (1 - Risk 1-dose series) 07/27/2025 Tobacco Screening 08/06/2025 08/06/2024 Family Planning (PISQ) 01/27/2026 01/27/2025 Pap Smear 12/23/2026 12/24/2023 DTaP/Tdap/Td Vaccines (8 - Td or Tdap) 05/16/2031 05/16/2021, 01/24/2012, 05/04/2004, Additional history exists Zoster Vaccines (1 of 2) 2050 Hepatitis B Vaccines Completed 2000, 2000, 2000 HIB Vaccines Completed 04/14/2001, 09/26, 2000, Additional history exists Pneumococcal Vaccine: Pediatrics (0 to 5 Years) and At-Risk Patients (6 to 49) Years Aged Out 04/14/2001, 2000, 2000 No longer eligible based on patient's age to complete this topic IPV Vaccines Completed 05/04/2004, 12/27, 2000, Additional history exists Hepatitis A Vaccines Completed 06/21/2015, 03/24/20 13 HPV Vaccines Completed 07/09/2016, 05/30, 03/24/2013 Meningococcal Vaccine Completed 07/09/2016, 012 HIV Screening Completed 05/16/2021 Hepatitis C Screening Completed 05/16/2021 Meningococcal B Vaccine Aged Out No l onger eligible based on patient's age to complete this topic RSV under 20 months Aged Out No longe r eligible based on patient's age to complete this topic Rotavirus Vaccines Aged Out No longer eligible based on patient's age to complete this topic Procedures Procedure Name Priority Date/Time Associated Diagnosis Comments PAP SMEAR Routine 12/24/2023 12:00 AM EDT Cervical cancer screening HEPATITIS C AB W/REFL TO HCV RNA, QN, PCR Routine 05/16/2021 from Last 3 Months or Most Recently Relevant to Health Maintenance Results * Pap Smear (12/24/2023 12:00 AM EDT) Swab Cervical swab / Unknown 12/24/2023 12/25/2023 10:30 AM EDT [facility] - 01/13/2024 5:10 PM EDT ----- ------- Name: Elisa Schultz Age/Sex: 23/F : 2000 Unit#: [id number] Attend Dr: Vida Valencia MD Re12/24/23 Status: DEP REF Location: [facility]NP Disch: ----- ------- SPEC : [id number] RECD: 12/25/23 STATUS: ALBA BEAL NUM: [id number] JAMEY: 12/24/23-[address]: Vida Valencia MD ENTERED: 12/25/23-140 SP TYPE: Pap Smr OTHR DR: ORDERED: Pap Smear Interpretation Satisfactory for evaluation. Negative for intraepithelial lesion or malignancy. Fungal organisms consistent with Zara species. Clinical Information LMP: 11/26/2023 Previous PAP test: Unknown date/findings Material Received ThinPrep-Cervical ----- ------- Signed (signature on file) Ann Buchanan 01/13/24 1710 ----- ------- END OF REPORT Vida Valencia MD LAB CYTOLOGY ORDERABLES Final Result [facility] [address] [place] [phone] * Hepatitis C Antibody with Reflex to HCV, RNA, Quantitative, Real-Time PCR (05/16/2021) HCV AB Nonreactive Blood Venous blood specimen / Unknown 05/16/2021 Historical Provider LAB BLOOD ORDERABLES Jenniffer l Result from Last 3 Months or Most Recently Relevant to Health Maintenance Insurance [employer] Care Teams Wardrobe Coordinator Relationship Specialty Start Date End Date Jennie Quinones MD [address] [place] [address] [place] [address] PCP - General Internal Medicine 12/17/23
[2025-02-16 17:40] VITALS: BP 119/79; PULSE 95; RESP 14; O2SAT 100
[2025-02-16 18:01] LABS: Appearance Urine Cloudy; Glucose Urine UA Negative (Negative); PH 6.0 (5.0-9.0); Specific Gravity - Urine 1.010 (1.005-1.025); UMIC TRIGGER UACC YES
[2025-02-16 18:14] LABS: UACC Culture Trigger YES
[2025-02-16 18:43] VITALS: BP 119/79; PULSE 95; RESP 14; TEMP 36.7; O2SAT 100
== END 2025-02-16 18:44 | disposition home or self-care (01) ==
PROVIDERS: Physician Assistant; Emergency Provider Emergency Medicine Emergency Medical Services; PCP Nurse Practitioner
DX: O9A.211 Injury, poisoning and certain other consequences of external causes complicating pregnancy, first trimester (principal); S20.212A Contusion of left front wall of thorax, initial encounter; Y00.XXXA Assault by blunt object, initial encounter; Y93.89 Activity, other specified; Y92.218 Other school as the place of occurrence of the external cause; Y99.0 Civilian activity done for income or pay; O23.41 Unspecified infection of urinary tract in pregnancy, first trimester; N39.0 Urinary tract infection, site not specified; R10.32 Left lower quadrant pain; Z3A.08 8 weeks gestation of pregnancy
CPT/HCPCS: 36415; 76705; 76801; 80053; 81001; 84702; 85025; 86900; 86901; 87086; 87088; 87186; 99284

== ENCOUNTER → 2025-02-16 15:57 | Outpatient (BNV) | payer OTHER, SELFPAY | PROVIDERS: Emergency Provider Emergency Medicine Emergency Medical Services; PCP Nurse Practitioner; Visit Provider Radiology Diagnostic Radiology | DX: O9A.211 Injury, poisoning and certain other consequences of external causes complicating pregnancy, first trimester (principal); Z3A.01 Less than 8 weeks gestation of pregnancy | CPT/HCPCS: 76705; 76801 ==